=== PATIENT | male | born 1985 | race Two or more races ===

== ENCOUNTER → 2024-02-24 | Emergency (ER) | payer OTHER ==
[~2024-02-24] VITALS: Ht 182.9 cm; Wt 95.3 kg
[2024-02-24 16:22] VITALS: BP 163/90; O2SAT 99
== END | disposition left against medical advice (07) ==
LOC: ER 15:05
DX: Z53.21 Procedure and treatment not carried out due to patient leaving prior to being seen by health care provider (principal)